=== PATIENT | female | born 1960 | race Hispanic/Latino ===

== ENCOUNTER → 2020-02-09 | Outpatient (CLI) | payer OTHER ==
[~2020-02-09] MED LIST: AMLODIPINE BESYL5 MG; ATENOLOL100 MG; DIOVAN HCT 3201 EACH; LOPID600 MG PO; METFORMIN HCL500 MG; ZEGERID 40 MG1 EACH
--- NOTE | 2020-02-09 10:42 | Diagnostic Imaging Report ---
EXAMINATION: CERVICAL SPINE 4 OR 5 VIEWS INDICATION: Neck pain COMPARISON: None FINDINGS: AP, lateral oblique and odontoid images of the cervical spine were obtained. No acute fracture or dislocation. Alignment is anatomic. Mild multilevel degenerative changes. Prevertebral soft tissues are normal in thickness. IMPRESSION: No acute osseous injury. Mild multilevel degenerative changes. Signed by: Claude Peralta MD on 02/09/2020 10:38 AM
== END ==
LOC: RAD 08:23
PROVIDERS: ATTEND Family Medicine
DX: M54.2 Cervicalgia (principal)
CPT/HCPCS: 72050

== ENCOUNTER → 2020-02-26 | Outpatient (CLI) | payer OTHER ==
[~2020-02-26] MED LIST changes: +LORAZEPAM INJ 2 MG/ML VIAL ONE
--- NOTE | 2020-02-26 09:38 | Diagnostic Imaging Report ---
MRI SPINE CERVICAL WO HISTORY: Neck pain COMPARISON: Cervical spine radiograph 02/09/2020; report from cervical spine MRI dated 04/23/2015 TECHNIQUE: Sagittal T1, sagittal T2, sagittal inversion recovery, axial T2 , axial GRE, and axial T1 weighted MR images of the cervical spine were obtained without intravenous contrast. Motion artifacts obscure some details. DISCUSSION: Alignment: Normal lordosis. No scoliosis. Vertebrae: No definite evidence for fractures, infection, or neoplasm. Cervicomedullary junction: No abnormalities. Spinal cord: Normal in signal and morphology from the foramen magnum through T3-T4. Soft tissues: Small right perineural cyst at C7-T1. Minimal cervical disc degeneration is present. No significant canal or foraminal stenosis is seen. Incidental findings: Mild scattered paranasal sinus mucosal thickening is present. 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 IMPRESSION: 1. No acute osseous abnormalities. 2. Minimal cervical disc degeneration without significant canal or foraminal stenosis.. Signed by: Dr. Esteban Kwong M.D. on 02/26/2020 9:34 AM
== END ==
LOC: MRI 07:02
PROVIDERS: ATTEND Family Medicine
DX: M54.12 Radiculopathy, cervical region (principal)
CPT/HCPCS: 72141; J2060

== ENCOUNTER → 2023-03-03 | Outpatient (CLI) | payer OTHER ==
[~2023-03-03] MED LIST changes: -LORAZEPAM INJ 2 MG/ML VIAL ONE
== END ==
LOC: RAD 12:36
PROVIDERS: ATTEND Family Medicine
DX: M54.12 Radiculopathy, cervical region (principal)
CPT/HCPCS: 72050